=== PATIENT | female | born 1975 | race Caucasian/White ===

== ENCOUNTER 2017-06-28 15:10 | Inpatient (IN) | payer OTHER ==
[~2017-06-28 15:10] MED LIST: IOPAMIDOL (ISOVUE-300) 100 ML BTL ONE
--- NOTE | 2017-06-28 16:22 | EDPHY ---
H & P Stated Complaint: DIVERTICULITIS WITH MICRO PERFORATION ON CT Time Seen by Provider: 06/28/17 15:20 HPI/ROS: CHIEF COMPLAINT: Abdominal pain, diverticulitis on CT HISTORY OF PRESENT ILLNESS: The patient is a 41 y/o female with a history of hypothyroidism arriving at the referral of her PCP for waxing and waning lower abdominal pain with confirmed diverticulitis on an abdominal CT today. Sunday night, 2 days ago, she developed lower abdominal pain that she describes feeling like "my stomach is in knots and I had bad gas and diarrhea." The pain is severe, aggravated by movement and walking and she has been "curling into the position" to get some relief from the pain. Pain has gradually worsened and she went to her PCP today for evaluation, who ordered an abdominal CT. This showed acute sigmoid diverticulitis with microperforations and no abscesses or appendicitis. She has associated fever, chills, and dry heaving yesterday. She's had difficulty eating and drinking since onset and has had no PO intake today. REVIEW OF SYSTEMS: Constitutional: see HPI Eyes: No visual changes ENT: No sore throat Respiratory: No cough, no shortness of breath Cardiac: No chest pain Gastrointestinal: see HPI Genitourinary: No hematuria, no dysuria Musculoskeletal: No leg pain or swelling Skin: No rash Neurological: No headache Psychiatric: No depression - Personal History LMP (Females 10-55): 15-21 Days Ago Current Tetanus/Diphtheria Vaccine: Yes - Medical/Surgical History PMH: Hypothyroidism Hx Asthma: No Hx Chronic Respiratory Disease: No Hx Diabetes: No Hx Cardiac Disease: No Hx Renal Disease: No Hx Cirrhosis: No Hx Alcoholism: No Hx HIV/AIDS: No Hx Splenectomy or Spleen Trauma: No Other PMH: DENIES - Social History Smoking Status: Never smoked Additional Social History: Nonsmoker. Has two children. Mother at bedside. PCP: Dr. Gutierrez - Physical Exam Exam: General Appearance: Alert, no distress, appears pale and uncomfortable Eyes: Pupils equal and round, no conjunctival pallor or injection ENT, Mouth: Mucous membranes moist Neck: Normal inspection Respiratory: Lungs are clear to auscultation Cardiovascular: Regular rate and rhythm Gastrointestinal: Abdomen - firm, diffuse abdominal tenderness worse in LLQ with rebound tenderness and guarding, decreased BS Neurological: A&O, nonfocal exam Skin: Warm and dry Extremities: Nontender, no pedal edema Psychiatric: Mood and affect normal Constitutional: Initial Vital Signs Temperature (C) 37 C 06/28/17 15:14 Heart Rate 84 06/28/17 15:14 Respiratory Rate 18 06/28/17 15:14 Blood Pressure 94/67 L 06/28/17 15:14 O2 Sat (%) 97 06/28/17 15:14 O2 Delivery Mode Room Air Allergies/Adverse Reactions: ibuprofen [Ibuprofen] Allergy (Unknown, Verified 06/28/17 18:08) Unknown naproxen [Naproxen] Allergy (Unknown, Verified 06/28/17 18:08) Unknown Home Medications: Medication Instructions Recorded Levothyroxine [Synthroid 75 mcg 75 mcg PO DAILY06 06/28/17 (*)] Medical Decision Making - Diagnostics Imaging Results: Abdomen CT 06/28/17 18:00 Impression: 1. Acute sigmoid diverticulitis with microperforations, including a 2 x 2 cm perforation in the low mid pelvis, surrounding inflammatory changes and free fluid. 2. No evidence of appendicitis or drainable abscess. 3. Incomplete rotation of the bowel as described above. Imaging: Discussed imaging studies w/ mail caller Radiologist, I viewed and interpreted images myself ED Course/Re-evaluation: This is a normally healthy 41 y/o female who presents with a 2-day history of gradually worsening lower abdominal pain with confirmed diverticulitis with perforation on outpatient CT today. She has generalized peritonitis on physical exam. She appears pale and uncomfortable. Does not meet SIRS criteria. Plan for IV, labs, antibiotics, surgery consult, and pain management. 1gm IV Invanz, 4mg IV Zofran, and 1L IV NS ordered. Patient declines pain medication at this time, despite my urging. Allergy to NSAIDs noted. 1625: Consulted with Dr. Son, surgeon. He will assess patient in the ED. Pt seen by Dr. Son, will admit, obs for now. Differential Diagnosis: includes though not limited to appy, ovarian cyst, ectopic , SBO - Data Points Medications Given: Acetaminophen (Tylenol) 1,000 mg PO Q8H PRN PRN Reason: Pain, Mild/Fever, Can Take PO Stop: 12/25/17 17:29 Last Admin: 06/30/17 21:56 Dose: 1,000 mg Ertapenem (Invanz) 1 gm IV DAILY AILYN PRN Reason: Protocol Stop: 07/29/17 08:59 Last Admin: 07/01/17 08:38 Dose: 1 gm Potassium Chloride/Dextrose/Sod Cl (D5w 1/2 Ns W/ 20 Kcl/L) 1,000 mls @ 100 mls /hr IV CONT AILYN Stop: 12/25/17 17:29 Last Admin: 07/01/17 10:35 Dose: 1,000 mls Levothyroxine Sodium (Synthroid) 75 mcg PO DAILY AT 6AM AILYN Stop: 12/26/17 05:59 Last Admin: 07/01/17 06:45 Dose: 75 mcg Ondansetron HCl (Zofran) 4 mg IVP Q4HRS PRN PRN Reason: Nausea/Vomiting, Can't Take PO Stop: 12/26/17 19:25 Last Admin: 06/29/17 19:40 Dose: 4 mg Discontinued Medications Acetaminophen (Tylenol) 1,000 mg PO Q8H [facility] Stop: 12/25/17 17:29 Last Admin: 06/30/17 17:37 Dose: 1,000 mg Ertapenem (Invanz) 1 gm IVP EDNOW ONE PRN Reason: Protocol Stop: 06/28/17 16:27 Last Admin: 06/28/17 16:42 Dose: 1 gm Sodium Chloride (Ns) 1,000 mls @ 0 mls/hr IV EDNOW ONE; Wide Open PRN Reason: Protocol Stop: 06/28/17 16:25 Last Admin: 06/28/17 16:39 Dose: 1,000 mls Ondansetron HCl (Zofran) 4 mg IVP EDNOW ONE Stop: 06/28/17 16:25 Last Admin: 06/28/17 16:40 Dose: Not Given Ondansetron HCl (Zofran) 4 mg IVP Q4HRS PRN PRN Reason: *Nausea &/or Vomiting Stop: 06/29/17 17:27 Last Admin: 06/29/17 12:00 Dose: 4 mg Departure - Departure Disposition: [facility] Inpatient Acute Clinical Impression: Sigmoid diverticulitis Diverticulitis of colon with perforation Qualifiers: Diverticulitis bleeding: unspecified bleeding status Qualified Code(s): K57.20 - Diverticulitis of large intestine with perforation and abscess without bleeding Condition: Fair Report Scribed for: Shakila Garduno Report Scribed by: Tiffany Lunsford Date of Report: 06/28/17 Time of Report: 16:22 Physician Review and Approval Statement: 06/28/17 16:22 Portions of this note were transcribed by a medical educator. I personally performed a history, physical exam, medical decision making, and confirmed accuracy of information the transcribed note.
[2017-06-28] MEDS ORDERED: ONDANSETRON 4 MG/2 ML VIAL IVP ONE (16:24)
[2017-06-28] MEDS ORDERED: NS 1,000 ML IV ONE (16:24)
[2017-06-28] MEDS ORDERED: ERTAPENEM 1 GM VIAL IVP ONE (16:26)
[2017-06-28] MEDS ORDERED: HYDROmorphONE/DILAUDID 2 MG/ML INJ IVP PRN (17:28)
[2017-06-28] MEDS ORDERED: ONDANSETRON 4 MG/2 ML VIAL IVP PRN (17:28)
--- NOTE | 2017-06-28 18:19 | GHP ---
[f rep st] PREOP HISTORY AND PHYSICAL ADMITTING DIAGNOSIS: Acute diverticulitis. HISTORY OF PRESENT ILLNESS: Airam is a 41-year-old white female who yesterday morning at approximately 2 in the morning had the onset of a generalized abdominal pain. It was associated with diarrhea. The pain was low in the center of her pelvis and off to the left. It was described as intermittently cramping and stabbing. She had 1 episode of "dry heaves." She was not hungry for breakfast. She stayed in bed all day long. She tried Gas-X and Pepto- Bismol without effect. She had attributed her discomfort to the food she consumed the prior day. On Sunday night she was up from 10 p.m. to 3:00 am on . She woke up to use the bathroom to urinate, was able to go back to sleep. This morning because the pain continued, she went to see her primary care physician. Laboratories were obtained, which showed a white blood cell count of 16,500 with 89% neutrophils. Her creatinine was 0.8 and her BUN was 13. She was sent for CT scan, which showed a 2 x 2 cm area of a focal perforation with fluid/stool and air low in the pelvis. She was asked to come to the emergency room for admission and evaluation. She is seen by Dr. Peri Garduno who asked me to come see the patient. mirna Nicholas 1 g started. Note is made there is no history of IBD. She moves her bowels daily and does not recall passing hard stool. SOCIAL HISTORY: She does not smoke. She drinks 1-2 glasses of wine 5 nights a week. She had an issue with nonsteroidal medications in college. She used Anaprox and Advil. Anaprox was mainly for menstrual discomfort and the Advil was for athletic pain. She says she took several Advil at a time. She developed blisters in her mouth. This was thought to be due to the nonsteroidal anti-inflammatory medication. 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 Her Synthroid dose is increased from 25 mcg to 75 mcg daily. She has not had any surgery, but has had 2 vaginal births. These had been complicated with both a cystocele and a rectocele. There is no history of rheumatic fever, tuberculosis , hepatitis, or transfusions. REVIEW OF SYSTEMS: She fell off a large slide as a young girl. Two days later , she had a seizure which was dismissed as a febrile seizure. She has not had any further concussions or seizures. She wears contacts for visual correction. She has 2 dental crowns. Review of systems otherwise quite negative. There are no limits on her activities. No history of steroid use in the last 6 months. FAMILY HISTORY: Her mother is 68 years old and alive and well. Her father is 67 years old and alive and well. He has had prostate cancer. He also had kidney stones. He has had 2 hernias repaired. The patient has a younger sister who is 35. She is alive well. There was no bleeding disorders, clotting disorders, difficulty with anesthesia in the patient's family. PHYSICAL EXAMINATION: VITAL SIGNS: Her blood pressure is 94/67 at 82, temperature is [address] scan also showed incomplete rotation of her intestines. GENERAL: She is awake and alert and pleasant. Skull is normocephalic and atraumatic. She is oriented to person, place, and time. Cranial nerves are intact. There are no focal lateralizing neurologic findings. NECK: Reveals no cervical supraclavicular lymphadenopathy. I do not appreciate any thyroid enlargement. There is no axillary or inguinal lymphadenopathy. LUNGS: Clear to auscultation. CARDIAC: Shows S1, S2 to be normal. Normal split of S2 without murmurs, rubs, or gallops. ABDOMEN: Shows a minimally distended abdomen and has hypoactive but normal bowel sounds. Psoas and obturator signs are negative bilaterally. RECTAL: Not performed. She is tender with cough at 2 on a scale of 1-10 just to the right of the low hypogastrium. To palpation, left upper quadrant is 4, left mid abdomen is 1, left lower quadrant is 1, epigastrium is 1, periumbilical area is 3, suprapubic area is 3, right upper quadrant is 1, right mid abdomen is 1, right lower quadrant is 2. EXTREMITIES: Otherwise unremarkable. IMPRESSION: Patient with 1st episode of what appears to be diverticulitis. I recommend a trial of antibiotics. If we can resolve the process, then a followup colonoscopy in 8 weeks would be appropriate. If she has recurrent episodes, consideration can be given to a segmental resection. Obviously, if she is not improved, then a surgical approach will be revisited. /[id number]/MODL MTDD
[2017-06-28] MEDS: D5W 1/2 NS W/ 20 KCl/L 1,000 ML IV SCH (18:51)
[2017-06-28] MEDS: ACETAMINOPHEN 500 MG TAB PO SCH (19:37)
[2017-06-29] MEDS: ACETAMINOPHEN 500 MG TAB PO SCH ×5 (02:20→17:22)
[2017-06-29] MEDS: LEVOTHYROXINE 75 MCG TAB PO SCH (04:31)
[2017-06-29 04:55] LABS: PLATELET COUNT 214 10^3/uL (150-400)
--- NOTE | 2017-06-29 07:42 | SOAPPROG ---
SOAP Progress Note Assessment/Plan: PAD#1 06/29/17 07:39 Assessment: Pain stable. No flatus or stool. Abdomen less tender. Minimal bowel sounds. Afebrile. WBC 16K to 14K Plan: Continue antibiotics and IV fluids NPO except for meds TSH pending encourage ambulation Labs in AM Subjective: No flatus or stool My pain is about the same Objective: Vital Signs Temp Pulse Resp BP Pulse Ox 36.8 C 62 16 96/52 L 94 06/29/17 04:22 06/29/17 04:22 06/29/17 04:22 06/29/17 04:22 06/29/17 04:22 Laboratory Results 06/29/17 04:10 06/29/17 04:10 06/28/17 06/29/17 06/30/17 05:59 05:59 05:59 Intake Total 2061 Balance 2061 - Time Spent With Patient Time Spent With Patient: 25 - Pending Discharge Pending Discharge Within 24 Hours: No Pending Discharge Within 48 Hours: No Physical Exam - Physical Exam General Appearance: WD/WN, alert, mild distress Respiratory: chest non-tender, lungs clear, normal breath sounds Cardiac/Chest: regular rate, rhythm Abdomen: other (Hypoactive bowel sounds. Pain down to 2/10 in LLQ and hypogastrium) Pelvic Exam: deferred Rectal: deferred Back: Normal inspection Skin: normal color, warm/dry Extremities: normal range of motion, non-tender Neuro/Psych: no motor/sensory deficits, alert, normal mood/affect, oriented x 3 ICD10 Worksheet Patient Problems: Problems Problem Status Onset Diverticulitis of colon with perforation Acute Sigmoid diverticulitis Acute
--- NOTE | 2017-06-29 08:57 | PDMN ---
Medical Necessity Medical necessity: M150 diverticulitis- acute A -2 days: peritoneal signs with microperforations ,free fluid, and incomplete rotation of intestines, noted on CT. pt will be NPO, and have trial of IV abx,,IV fluids, anticipate > 2 midnights for further monitoring, eval and tx.
[2017-06-29] MEDS: ERTAPENEM 1 GM VIAL IV SCH (10:07)
--- NOTE | 2017-06-29 12:13 | ASMTCMCOM ---
CM Note CM Note Notes: Pt admitted with a new dx of diverticulitis. She is currently on a trial of Iv ABX. Pt's DC needs unclear. CM will continue to follow. Date Signed: 06/29/2017 12:13 PM Electronically Signed By:Amaris Neri LCSW
[2017-06-29] MEDS: D5W 1/2 NS W/ 20 KCl/L 1,000 ML IV SCH ×2 (12:25→23:33)
[2017-06-29] MEDS ORDERED: ONDANSETRON 4 MG/2 ML VIAL IVP PRN (19:26)
[2017-06-30] MEDS: ACETAMINOPHEN 500 MG TAB PO SCH ×3 (04:07→17:37)
[2017-06-30] MEDS: LEVOTHYROXINE 75 MCG TAB PO SCH (04:08)
[2017-06-30 04:54] LABS: PLATELET COUNT 207 10^3/uL (150-400)
[2017-06-30] MEDS: ERTAPENEM 1 GM VIAL IV SCH (09:44)
--- NOTE | 2017-06-30 11:07 | SOAPPROG ---
SOAP Progress Note Assessment/Plan: Assessment: 41-YEAR-OLD FEMALE STATUS POST LOCALIZED PERFORATION OF DIVERTICULITIS ABDOMEN SOFT, SLIGHTLY TENDER IN THE LEFT LOWER QUADRANT WITH BOWEL SOUNDS, SLIGHTLY DISTENDED AFEBRILE, VITAL SIGNS STABLE, WBC DOWN TO 8400 SOME FLATUS BUT NO BM IMPRESSION: IMPROVING Plan: CONTINUE IV ANTIBIOTICS/START SIPS OF CLEAR LIQUIDS/FOLLOW-UP CT SCAN WHEN NEEDED FOR HER CLINICAL COURSE/POSSIBLE A VENTRAL COLECTOMY 06/30/17 11:04 Objective: Vital Signs Temp Pulse Resp BP Pulse Ox 36.5 C 47 L 15 90/53 L 97 06/30/17 09:13 06/30/17 09:13 06/30/17 09:13 06/30/17 09:13 06/30/17 09:13 Laboratory Results 06/30/17 04:00 06/30/17 04:00 06/29/17 06/30/17 07/01/17 05:59 05:59 06:59 Intake Total 2061 863 Balance 2061 863 ICD10 Worksheet Patient Problems: Problems Problem Status Onset Diverticulitis of colon with perforation Acute Sigmoid diverticulitis Acute
[2017-06-30] MEDS: D5W 1/2 NS W/ 20 KCl/L 1,000 ML IV SCH (11:58)
[2017-06-30] MEDS: ACETAMINOPHEN 500 MG TAB PO PRN (21:56)
[2017-07-01 04:40] LABS: PLATELET COUNT 222 10^3/uL (150-400)
[2017-07-01] MEDS: LEVOTHYROXINE 75 MCG TAB PO SCH (06:45)
[2017-07-01] MEDS: D5W 1/2 NS W/ 20 KCl/L 1,000 ML IV SCH ×3 (06:46→21:03)
[2017-07-01] MEDS: ERTAPENEM 1 GM VIAL IV SCH (08:38)
--- NOTE | 2017-07-01 10:46 | SOAPPROG ---
SOAP Progress Note Assessment/Plan: Assessment: 41-YEAR-OLD FEMALE STATUS POST LOCALIZED PERFORATION OF DIVERTICULITIS ABDOMEN SOFT, SLIGHTLY TENDER IN THE LEFT LOWER QUADRANT WITH BOWEL SOUNDS, SLIGHTLY DISTENDED AFEBRILE, VITAL SIGNS STABLE, WBC DOWN TO 8400 SOME FLATUS BUT NO BM IMPRESSION: IMPROVING Plan: CONTINUE IV ANTIBIOTICS/START SIPS OF CLEAR LIQUIDS/FOLLOW-UP CT SCAN WHEN NEEDED FOR HER CLINICAL COURSE/POSSIBLE A VENTRAL COLECTOMY 06/30/17 11:04 07/01/17 10:44 LESS TENDER, AEBRILE, +FLATUS, ABD SOFT, +BS/ CONTINUE ON CLEARS Objective: Vital Signs Temp Pulse Resp BP Pulse Ox 36.8 C 60 16 91/53 L 95 07/01/17 08:00 07/01/17 08:00 07/01/17 08:00 07/01/17 08:00 07/01/17 08:00 Laboratory Results 07/01/17 04:02 07/01/17 04:02 06/30/17 07/01/17 07/02/17 04:59 05:59 05:59 Intake Total Balance ICD10 Worksheet Patient Problems: Problems Problem Status Onset Diverticulitis of colon with perforation Acute Sigmoid diverticulitis Acute
--- NOTE | 2017-07-01 14:59 | SOAPPROG ---
SOAP Progress Note Assessment/Plan: Assessment: 41-YEAR-OLD FEMALE STATUS POST LOCALIZED PERFORATION OF DIVERTICULITIS ABDOMEN SOFT, SLIGHTLY TENDER IN THE LEFT LOWER QUADRANT WITH BOWEL SOUNDS, SLIGHTLY DISTENDED AFEBRILE, VITAL SIGNS STABLE, WBC DOWN TO 8400 SOME FLATUS BUT NO BM IMPRESSION: IMPROVING Plan: CONTINUE IV ANTIBIOTICS/START SIPS OF CLEAR LIQUIDS/FOLLOW-UP CT SCAN WHEN NEEDED FOR HER CLINICAL COURSE/POSSIBLE A VENTRAL COLECTOMY 06/30/17 11:04 07/01/17 10:44 LESS TENDER, AEBRILE, +FLATUS, ABD SOFT, +BS/ CONTINUE ON CLEARS 07/01/17 14:59 CONTINUES TO IMPROVE/ HOME IN AM ON ORAL ABX Objective: Vital Signs Temp Pulse Resp BP Pulse Ox 36.7 C 52 L 16 96/54 L 99 07/01/17 12:00 07/01/17 12:00 07/01/17 12:00 07/01/17 12:00 07/01/17 12:00 Laboratory Results 07/01/17 04:02 07/01/17 04:02 06/30/17 07/01/17 07/02/17 04:59 05:59 05:59 Intake Total Balance ICD10 Worksheet Patient Problems: Problems Problem Status Onset Diverticulitis of colon with perforation Acute Sigmoid diverticulitis Acute
--- NOTE | 2017-07-01 18:02 | ASMTCMCOM ---
CM Note CM Note Notes: Pt is improving and now on clears. She will likely have no DC needs. Date Signed: 07/01/2017 03:01 PM Electronically Signed By:Amaris Neri LCSW
[2017-07-01] MEDS: ACETAMINOPHEN 500 MG TAB PO PRN (18:34)
[2017-07-02] MEDS: LEVOTHYROXINE 75 MCG TAB PO SCH (05:14)
[2017-07-02 05:29] VITALS: RESP 16; O2SAT 95
[2017-07-02 07:22] VITALS: BP 99/56; PULSE 65; TEMP 98.3
[2017-07-02] MEDS: ERTAPENEM 1 GM VIAL IV SCH (08:38)
--- NOTE | 2017-07-02 09:11 | SOAPPROG ---
SOAP Progress Note Assessment/Plan: Assessment: 41-YEAR-OLD FEMALE STATUS POST LOCALIZED PERFORATION OF DIVERTICULITIS ABDOMEN SOFT, SLIGHTLY TENDER IN THE LEFT LOWER QUADRANT WITH BOWEL SOUNDS, SLIGHTLY DISTENDED AFEBRILE, VITAL SIGNS STABLE, WBC DOWN TO 8400 SOME FLATUS BUT NO BM IMPRESSION: IMPROVING Plan: CONTINUE IV ANTIBIOTICS/START SIPS OF CLEAR LIQUIDS/FOLLOW-UP CT SCAN WHEN NEEDED FOR HER CLINICAL COURSE/POSSIBLE A VENTRAL COLECTOMY 06/30/17 11:04 07/01/17 10:44 LESS TENDER, AEBRILE, +FLATUS, ABD SOFT, +BS/ CONTINUE ON CLEARS 07/01/17 14:59 CONTINUES TO IMPROVE/ HOME IN AM ON ORAL ABX 07/02/17 09:11 ABDOMEN SOFTER WITH LESS PAIN/AFEBRILE/PLAN HOME TODAY ON ORAL ANTIBIOTICS AND CLEAR LIQUIDS Objective: Vital Signs Temp Pulse Resp BP Pulse Ox 36.8 C 65 16 99/56 L 95 07/02/17 07:17 07/02/17 07:17 07/02/17 07:17 07/02/17 07:17 07/02/17 07:17 Laboratory Results 07/01/17 04:02 07/01/17 04:02 07/01/17 07/02/17 07/03/17 05:59 05:59 05:59 Intake Total 2940 Balance 2940 ICD10 Worksheet Patient Problems: Problems Problem Status Onset Diverticulitis of colon with perforation Acute Sigmoid diverticulitis Acute
--- NOTE | 2017-07-02 10:43 | ASMTLACE ---
[facility]ACE Length of stay for Answers: 4-6 days current admission Acuity / Level of Answers: Yes Care: Did the patient have an inpatient admission? # of Emergency department Answers: 1-2 visits in the last 6 months Score: 8 Date Signed: 07/02/2017 10:42 AM Electronically Signed By:SUDEEP Kramer
--- NOTE | 2017-07-02 10:47 | ASDISCHSUM ---
Discharge Information Plan Status:Home with No Needs Medically Cleared to Leave:07/02/2017 Discharge Date:07/02/2017 CM D/C Disposition:Home, Routine, Self-Care ADT D/C Disposition:Home, Routine, Self-Care Projected Discharge Date:07/02/2017 Transportation at D/C:Family Discharge Delay Reason: Follow-Up Date:07/02/2017 Discharge Slot: Final Diagnosis: Placement Information Patient Contact Information Contact Name:CASS Relationship: Address:[address] Work Phone: City:[place] [facility] Phone: State/Zip Code:[place] [address] Email: Financial Information Financial Class:[facility] [employer] Primary Plan Desc:[facility] OPEN ACC [facility] Primary Plan Number:[id number] Secondary Plan Desc: Secondary Plan Number: Assessment Information [facility] CM Progress Note CM Note CM Note Notes: Pt admitted with a new dx of diverticulitis. She is currently on a trial of Iv ABX. Pt's DC needs unclear. CM will continue to follow. Date Signed: 06/29/2017 12:13 PM Electronically Signed By:Amaris Neri LCSW [facility] CM Progress Note CM Note CM Note Notes: Pt is improving and now on clears. She will likely have no DC needs. Date Signed: 07/01/2017 03:01 PM Electronically Signed By:Amaris Neri LCSW [facility] Length of stay for Answers: 4-6 days current admission Acuity / Level of Answers: Yes Care: Did the patient have an inpatient admission? # of Emergency department Answers: 1-2 visits in the last 6 months Score: 8 Date Signed: 07/02/2017 10:42 AM Electronically Signed By:SUDEEP Kramer Intervention Information
== END 2017-07-02 11:05 | disposition home or self-care (01) | DRG 392 ==
LOC: EDSTATUS 18:00 → F1N 18:36
PROVIDERS: ADMIT Surgery; ATTEND Surgery
DX: K57.20 Diverticulitis of large intestine with perforation and abscess without bleeding (principal); E03.9 Hypothyroidism, unspecified
CPT/HCPCS: 96374; J1335; J2405; Q9967

== ENCOUNTER → 2017-07-05 | Outpatient (CLI) | payer OTHER | LOC: FIMAGING 12:33 | PROVIDERS: ATTEND Surgery | DX: I87.9 Disorder of vein, unspecified (principal); D25.9 Leiomyoma of uterus, unspecified | CPT/HCPCS: Q9967 ==